=== PATIENT | male | born 1985 | race Caucasian/White ===

== ENCOUNTER 2023-05-19 07:38 | Outpatient (CLI) | payer OTHER, SELFPAY | END 2023-05-19 07:39 | disposition home or self-care (01) | LOC: NFLDREF 05-25 07:46 | PROVIDERS: Visit Provider Internal Medicine Nephrology | DX: I10 Essential (primary) hypertension (principal); N18.9 Chronic kidney disease, unspecified | CPT/HCPCS: 80061; 80069; 82043; 82570; 84153; 87086 ==

== ENCOUNTER 2025-07-26 08:22 | Outpatient (CLI) | payer OTHER, SELFPAY | END 2025-07-26 08:23 | disposition home or self-care (01) | LOC: FRMREF 08:23 | PROVIDERS: Visit Provider Family Medicine | DX: N04.9 Nephrotic syndrome with unspecified morphologic changes (principal) | CPT/HCPCS: 80053; 80061; 82043; 82570; 87086 ==

== ENCOUNTER 2025-08-05 12:47 | Outpatient (CLI) | payer OTHER, SELFPAY | END 2025-08-05 12:48 | disposition home or self-care (01) | PROVIDERS: PCP Family Medicine; Visit Provider Internal Medicine Nephrology | DX: N04.9 Nephrotic syndrome with unspecified morphologic changes (principal); N18.1 Chronic kidney disease, stage 1; E78.5 Hyperlipidemia, unspecified | CPT/HCPCS: 82784; 83520; 84155; 84165; 86160; 86225; 86255; 86256; 86334; G0103 ==

== ENCOUNTER 2025-08-16 09:00 | Outpatient (CLI) | payer OTHER, SELFPAY | END 2025-08-16 09:01 | disposition home or self-care (01) | LOC: NFLDREF 08-29 16:18 | PROVIDERS: PCP Family Medicine; Referring Provider Family Medicine; Visit Provider Internal Medicine Nephrology | DX: N05.2 Unspecified nephritic syndrome with diffuse membranous glomerulonephritis (principal) | CPT/HCPCS: 82570; 84156 ==

== ENCOUNTER 2025-08-22 07:53 | Outpatient (CLI) | payer OTHER, SELFPAY | END 2025-08-22 07:54 | disposition home or self-care (01) | LOC: NFLDREF 08-25 17:29 | PROVIDERS: PCP Family Medicine; Referring Provider Family Medicine; Visit Provider Clinical Nurse Specialist | DX: N04.9 Nephrotic syndrome with unspecified morphologic changes (principal); Z51.11 Encounter for antineoplastic chemotherapy | CPT/HCPCS: 80053; 86704; 86706; 87340 ==

== ENCOUNTER 2025-09-06 07:45 | Outpatient (CLI) | payer OTHER, SELFPAY | END 2025-09-06 07:46 | disposition home or self-care (01) | LOC: NFLDREF 09-12 05:48 | PROVIDERS: PCP Family Medicine; Referring Provider Family Medicine; Visit Provider Clinical Nurse Specialist | DX: N04.9 Nephrotic syndrome with unspecified morphologic changes (principal) | CPT/HCPCS: 80053 ==

== ENCOUNTER 2025-09-19 09:11 | Outpatient (CLI) | payer OTHER, SELFPAY | END 2025-09-19 09:12 | disposition home or self-care (01) | LOC: FRMREF 09:12 | PROVIDERS: PCP Family Medicine; Visit Provider Internal Medicine Nephrology | DX: E78.5 Hyperlipidemia, unspecified (principal); N05.2 Unspecified nephritic syndrome with diffuse membranous glomerulonephritis; R79.89 Other specified abnormal findings of blood chemistry | CPT/HCPCS: 80061; 80069; 80076; 82043; 82570 ==